=== PATIENT | male | born 1960 | race Caucasian/White ===

== ENCOUNTER 2021-12-28 00:16 | Day surgery (SDC) | payer OTHER, SELFPAY ==
[2021-12-15 15:17] VITALS: BMI 29.4
[2021-12-28 07:37] VITALS: BP 129/93; PULSE 78; RESP 20; TEMP 36.2; O2SAT 98
[2021-12-28] MEDS: LACTATED RINGERS 1,000 ML 150 ML IV CONT (07:52)
--- NOTE | 2021-12-28 08:06 | WPDANESEPPF ---
Anes - Initial Pre Proc Eval Procedure: Operation Date: 12/28/21 08:30 Proposed Procedures p Esophagogastroduodenoscopy & Screening Colonoscopy - Fredy Go MD Date/Time: 12/28/21 08:06 Surgeon: Fredy Go MD Pre Op Diagnosis: GERD, neoplasm screening, family hx colon ca Patient Data Age: 61 Gender: M Height: 1.78 m Weight: 92.3 kg Last Vital Signs Temp 36.2 C L 12/28/21 07:37 Pulse 78 12/28/21 07:37 Resp 20 12/28/21 07:37 BP 129/93 H 12/28/21 07:37 Pulse Ox 98 12/28/21 07:37 Allergies Allergy/AdvReac Type Severity Reaction Status Date / Time Penicillins Allergy Unknown Swelling Verified 12/28/21 07:36 of Lip/Tongue/Throat Home Medications Medication Instructions Recorded Confirmed Type etanercept [Enbrel SureClick] 50 mg SUBCUT WEEKLY 12/15/21 12/15/21 History folic acid 1 mg PO DAILY 12/15/21 12/15/21 History lisinopril-hydrochlorothiazide 1 tablet PO DAILY 12/15/21 12/15/21 History naproxen 500 mg PO DAILY 12/15/21 12/15/21 History omeprazole 20 mg PO DAILY 12/15/21 12/15/21 History sildenafil 50 mg PO DAILY PRN 12/15/21 12/15/21 History Patient hx anesthesia problems: none Family hx anesthesia problems: none Results Review: All pre-operative results and documents have been reviewed as part of the pre-operative evaluation. [facility] Past Medical History Medical History HTN (hypertension) Overweight Tobacco chew use Surgical History Surgical History (Updated 12/28/21 @ 08:08 by Leonardo Wong MD) History of cholecystectomy Social History Social History Smoking packs per day: 2 Smoking cigarettes per day: 40.0 Years smoked: 30 Smoking pack-years: 60.00 Smoking status: Former smoker Tobacco type: cigarettes Alcohol intake: never Substance use: never Substance use type: does not use Living arrangements: with family Spiritual care concerns: No Anes - Eval Final PreProcedure Day of Procedure 12/28/21 08:06 Patient weight: overweight Heart: regular rate and rhythm Lungs: clear to auscultation Airway: Mallampati scale class II Neurological: alert and oriented Last oral intake: >/= 8 hours ASA classification: III Emergent: no Anesthetic plan: proceed Anesthesia type and monitoring: general GIVS and standard monitoring Results Review: All pre-operative results and documents have been reviewed as part of the pre-operative evaluation. Informed Consent: The patient's anesthetic plan and its attendant risks and benefits were discussed with the patient/family/POA. Questions were solicited and answers provided to the satisfaction of the patient/family/POA.
--- NOTE | 2021-12-28 08:16 | PM.HPGS ---
History of Present Illness History of Present Illness Consent: Risks, benefits, and alternatives have been discussed and questions answered. Patient agrees to proceed with procedure. Chief complaint: GERD, neoplasm screening, family hx colon ca Narrative: Darrius Slater is a 61 year old male with gerd for ~ 30 years on omeprazole 1-2/week, never had EGD. Last colonoscopy ~ 7 years ago, father had colon cancer. Review of Systems Constitutional: Constitutional: Denies headache(s) and Denies weakness Eyes: Eyes: Denies blurry vision ENT: Reports Normal hearing present, Denies headache(s) and Denies neck pain Cardiovascular: Cardiovascular: Denies chest pain and Denies dyspnea Respiratory: Respiratory: Denies dyspnea Gastrointestinal: Gastrointestinal: Reports no additional gastrointestinal complaints Genitourinary: Genitourinary: Denies dysuria Musculoskeletal: Musculoskeletal: Denies neck pain Integumentary/Breasts: Skin/Breast: Denies dry skin Neurologic: Reports Normal hearing present, Denies headache(s) and Denies weakness Psychiatric: Psychiatric: Denies anxiety Endocrine: Endocrine: Denies change in body appearance Hematologic/Lymphatic: Hematologic/Lymphatic: Denies easy bleeding Allergic/Immunologic: Allergic/Immunologic: Denies urticaria PMFSH Past Medical History Medical History Colon cancer screening GERD (gastroesophageal reflux disease) HTN (hypertension) Overweight Tobacco chew use Surgical History Surgical History (Updated 12/28/21 @ 08:08 by Leonardo Wong MD) History of cholecystectomy Social History Social History Smoking packs per day: 2 Smoking cigarettes per day: 40.0 Years smoked: 30 Smoking pack-years: 60.00 Smoking status: Former smoker Tobacco type: cigarettes Alcohol intake: never Substance use: never Substance use type: does not use Living arrangements: with family Spiritual care concerns: No Meds Home Medications and Allergies Home Medications Medication Instructions Recorded Confirmed Type etanercept [Enbrel SureClick] 50 mg SUBCUT WEEKLY 12/15/21 12/15/21 History folic acid 1 mg PO DAILY 12/15/21 12/15/21 History lisinopril-hydrochlorothiazide 1 tablet PO DAILY 12/15/21 12/15/21 History naproxen 500 mg PO DAILY 12/15/21 12/15/21 History omeprazole 20 mg PO DAILY 12/15/21 12/15/21 History sildenafil 50 mg PO DAILY PRN 12/15/21 12/15/21 History Allergies Allergy/AdvReac Type Severity Reaction Status Date / Time Penicillins Allergy Unknown Swelling Verified 12/28/21 07:36 of Lip/Tongue/Throat Vital Signs Vital Signs - 24 hr 12/28/21 07:37 Temperature 97.1 F L Pulse Rate 78 Respiratory Rate 20 Blood Pressure 129/93 H Pulse Oximetry 98 Exam Const: General: comfortable and no acute distress HENMT: General nose exam: Normal nares present Eyes: General: appearance normal, both eyes and all related structures Neck: Neck: no JVD Resp: Auscultation: clear to auscultation bilaterally Cardio: Rate: regular rate Rhythm: regular rhythm GI: Inspection: non-distended GI Palp: Yes Soft to palpation Skin: General skin exam: normal color Neuro: General: gait normal Speech: normal speech Extrem: General: normal to inspection Psych: Mental Status: mental status grossly normal Assessment and Plan Assessment and plan (1) Colon cancer screening: Code(s): Z12.11 - Encounter for screening for malignant neoplasm of colon Status: Acute Assessment and Plan: colonoscopy (2) GERD (gastroesophageal reflux disease): Code(s): K21.9 - Gastro-esophageal reflux disease without esophagitis Status: Acute Assessment and Plan: egd with bx, taking ppi as needed
[2021-12-28] MEDS: ONDANSETRON INJ 4 MG/2 ML VIAL IV PUSH (08:17)
[2021-12-28] MEDS: FAMOTIDINE 20 MG/2 ML VIAL IV PUSH (08:18)
[2021-12-28 08:48] VITALS: BP 111/70; PULSE 110; RESP 18; O2SAT 97
[2021-12-28 08:58] VITALS: BP 117/77; PULSE 106; RESP 17; O2SAT 94
[2021-12-28 09:08] VITALS: BP 122/85; PULSE 60; RESP 19; O2SAT 96
--- NOTE | 2021-12-28 09:16 | SUR.OPER ---
EGD start 825 end 829, Colonoscopy start 834 end 843
== END 2021-12-28 09:29 | disposition home or self-care (01) ==
PROVIDERS: PCP Emergency Medicine; Visit Provider Internal Medicine Gastroenterology
PROC: 0DJ08ZZ Inspection of Upper Intestinal Tract, Via Natural or Artificial Opening Endoscopic (ICD-10-PCS; CPT 43235; principal; 2021-12-28 08:30)
DX: Z12.11 Encounter for screening for malignant neoplasm of colon (principal); D12.0 Benign neoplasm of cecum; Z80.0 Family history of malignant neoplasm of digestive organs; K57.30 Diverticulosis of large intestine without perforation or abscess without bleeding; K29.60 Other gastritis without bleeding; K21.00 Gastro-esophageal reflux disease with esophagitis, without bleeding; K22.10 Ulcer of esophagus without bleeding; I10 Essential (primary) hypertension; Z90.49 Acquired absence of other specified parts of digestive tract; Z87.891 Personal history of nicotine dependence
CPT/HCPCS: 45380; 43239; 88305; J2405; J2704; J7120

== ENCOUNTER 2025-05-22 12:53 | Emergency (ER) | payer OTHER, SELFPAY ==
--- NOTE | 2025-05-22 12:56 | ED.GENADULT ---
HPI - General Adult General Chief complaint: Anxiety Stated complaint: ANXIETY Source: patient Mode of arrival: ambulatory Limitations: no limitations History of Present Illness HPI narrative: Pt is a pleasant 61 yo male presenting with c/o anxiety. Reports anxiety has been present x several weeks--became worse over the last week. States he went to PCP last week due to anxiety and sinus congestion--said PCP only addressed his sinus congestion with abx and prednisone. States he has been taking those medications without improvement in sx--citing worsening of anxiety since starting those meds. States he feels like the room is closing in when going from outdoors to inside. Denies SI/HI. Denies CP, SOB, abd pain, NVD, headache, vision abnormalities. States his PCP d/c his abx yesterday as the patient voiced concern over the abx causing his anxiety. Does report upcoming labwork due to high platelets. No alleviating factors. No additional complaints. Related Data Home Medications ?Medication ?Instructions ?Recorded ?Confirmed ?Last Taken ?Type etanercept 50 mg/mL (1 mL) 50 mg subcut WEEKLY 12/15/21 12/15/21 Unknown History subcutaneous pen injector (Enbrel SureClick) folic acid 1 mg tablet 1 mg PO DAILY 12/15/21 12/15/21 12/27/21 History lisinopril 10 1 tablet PO DAILY 12/15/21 12/15/21 12/27/21 History mg-hydrochlorothiazide 12.5 mg tablet naproxen 500 mg tablet 500 mg PO DAILY 12/15/21 12/15/21 12/27/21 History sildenafil 50 mg tablet 50 mg PO DAILY PRN Sexual Activity 12/15/21 12/15/21 Unknown History Allergies Allergy/AdvReac Type Severity Reaction Status Date / Time Penicillins Allergy Unknown Swelling Verified 12/28/21 07:36 of Lip/Tongue/Throat Review of Systems Review of Systems: CONSTITUTIONAL: Denies body aches, fever, chills, or sweats. EYES: Denies visual changes, redness, or discharge. ENT: Reports nasal congestion. Denies rhinorrhea, sore throat, or otalgia. CARDIOVASCULAR: Denies chest pain, palpitations, or edema. RESPIRATORY: Denies cough or dyspnea. GASTROINTESTINAL: Denies abdominal pain, nausea, vomiting, or diarrhea. GENITOURINARY: Denies dysuria or hematuria. SKIN: Denies rash, itching, or wounds. MUSCULOSKELETAL: Denies back pain, joint pain, or myalgia. NEUROLOGIC: Denies headache, numbness, tingling, or weakness. PSYCH: Reports anxiety, denies depression All systems reviewed & are unremarkable except as noted in HPI and below (HPI) [facility] Past Medical History Medical History (Updated 05/22/25 @ 14:05 by Sridhar Berman APRN) GERD (gastroesophageal reflux disease) Colon cancer screening Tobacco chew use Overweight HTN (hypertension) Surgical History Surgical History (Updated 12/28/21 @ 08:08 by Leonardo Wong MD) History of cholecystectomy Social History Social History Smoking packs per day: 2 Smoking cigarettes per day: 40.0 Years smoked: 30 Smoking pack-years: 60.00 Smoking status: Former smoker Tobacco type: cigarettes Alcohol intake: never Substance use: never Substance use type: does not use Living arrangements: with family Spiritual care concerns: No Exam Narrative: GENERAL: Well-appearing, well-nourished, and in no acute distress. HEAD: Normocephalic, atraumatic. EYES: EOMI. No redness or drainage. Conjunctivae normal. ENT: Mucous membranes pink and moist. Nares clear. No rhinorrhea. TMs normal bilaterally. Throat normal. Uvula midline. Sinuses are nonTTP NECK: Normal AROM. Supple. No lymphadenopathy. CHEST: No respiratory distress. Clear to auscultation. HEART: Regular rate and rhythm. No murmur appreciated. Normal peripheral pulses. MUSCULOSKELETAL: No bony tenderness. EXTREMITIES: Normal range of motion. No edema. SKIN: Warm, dry, no rash. Capillary refill normal. Normal skin turgor. NEURO: No focal deficits. Alert and oriented x3. Gait steady. PSYCH: Normal affect. No signs of depression or anxiety. Course Course Emergency Course: encouraged him to f/u with PCP for further diagnostic work up. Strict go to the ER precautions discussed at length with patient. Discussed elevated blood pressure readings with patient and advised daily BP monitoring and f/u with PCP if persisting. Level of Care: Express Care Visit Vital Signs Vital signs: Vital Signs Temperature 97.2 F L 05/22/25 13:01 Pulse Rate 73 05/22/25 13:01 Respiratory Rate 16 09/17/25 13:01 Blood Pressure 143/87 H 05/22/25 13:01 Pulse Oximetry 97 05/22/25 13:01 Temperature 97.2 F L 05/22/25 13:01 Pulse Rate 73 05/22/25 13:01 Respiratory Rate 16 05/22/25 13:01 Blood Pressure 143/87 H 05/22/25 13:01 Pulse Oximetry 97 05/22/25 13:01 Medical Decision Making Vital Signs Vital Signs: Vital Signs Temperature 97.2 F L 05/22/25 13:01 Pulse Rate 73 05/22/25 13:01 Respiratory Rate 16 05/22/25 13:01 Blood Pressure 143/87 H 05/22/25 13:01 Pulse Oximetry 97 05/22/25 13:01 Temperature 97.2 F L 05/22/25 13:01 Pulse Rate 73 05/22/25 13:01 Respiratory Rate 16 05/22/25 13:01 Blood Pressure 143/87 H 05/22/25 13:01 Pulse Oximetry 97 05/22/25 13:01 Discharge Plan Discharge Clinical Impression: Nasal congestion, Anxiety, Elevated blood pressure reading in office without diagnosis of hypertension Patient Disposition: Home Condition: Stable Instructions: Anxiety (ED) Additional Instructions: Go straight to ER should your symptoms become worse or should any new symptoms develop Patient Language: Lao Prescriptions: New fluticasone propionate 50 mcg/actuation spray,suspension 1 spray intranasal BID Qty: 16 0RF Rx Instructions: administer into each nostril cetirizine [Zyrtec] 10 mg tablet 10 mg PO DAILY Qty: 30 0RF hydroxyzine HCl 25 mg tablet 25 mg PO TID Qty: 20 0RF Rx Instructions: as needed for anxiety No Action sildenafil 50 mg tablet 50 mg PO DAILY PRN (Reason: Sexual Activity) folic acid 1 mg tablet 1 mg PO DAILY lisinopril-hydrochlorothiazide 10-12.5 mg tablet 1 tablet PO DAILY naproxen 500 mg tablet 500 mg PO DAILY Enbrel SureClick 50 mg/mL (1 mL) pen injector 50 mg SUBCUT WEEKLY omeprazole 20 mg capsule,delayed release(DR/EC) 20 mg PO DAILY Qty: 30 11RF Follow-up/Referrals: Kvng Marquez MD [Primary Care Provider, Family Practice] - 05/23/25 Time of Disposition: 13:26
[2025-05-22 13:01] VITALS: BP 143/87; PULSE 73; RESP 16; TEMP 36.2; O2SAT 97
== END 2025-05-22 13:31 | disposition home or self-care (01) ==
PROVIDERS: Emergency Provider Registered Nurse; PCP Emergency Medicine
DX: R09.81 Nasal congestion (principal); F41.9 Anxiety disorder, unspecified; R03.0 Elevated blood-pressure reading, without diagnosis of hypertension; K21.9 Gastro-esophageal reflux disease without esophagitis; Z87.891 Personal history of nicotine dependence
CPT/HCPCS: 99213; G0463

== ENCOUNTER 2025-06-04 19:09 | Emergency (ER) | payer OTHER, SELFPAY ==
--- NOTE | 2025-06-04 19:19 | ED.LOWEXIN ---
HPI - Extremity Injury (Lower) General Chief Complaint: Extremity Injury, Lower Stated Complaint: R knee pain Time Seen by Provider: 06/04/25 19:25 Source: patient and RN notes reviewed Mode of arrival: ambulatory Limitations: no limitations History of Present Illness HPI Narrative: 65-year-old male presents with concern for right knee pain. Reports posterior pain. Reports he felt a pop he made a certain movement tonight and has had posterior pain. He no pain at rest and worsening pain with extension of the knee. He has been walking with a cane to assist with the pain. MD complaint: knee injury Related Data Home Medications ?Medication ?Instructions ?Recorded ?Confirmed ?Last Taken ?Type etanercept 50 mg/mL (1 mL) 50 mg subcut WEEKLY 12/15/21 12/15/21 Unknown History subcutaneous pen injector (Enbrel SureClick) folic acid 1 mg tablet 1 mg PO DAILY 12/15/21 12/15/21 12/27/21 History lisinopril 10 1 tablet PO DAILY 12/15/21 12/15/21 12/27/21 History mg-hydrochlorothiazide 12.5 mg tablet naproxen 500 mg tablet 500 mg PO DAILY 12/15/21 12/15/21 12/27/21 History sildenafil 50 mg tablet 50 mg PO DAILY PRN Sexual Activity 12/15/21 12/15/21 Unknown History escitalopram oxalate 10 mg tablet mg 06/04/25 Unknown History Allergies Allergy/AdvReac Type Severity Reaction Status Date / Time Penicillins Allergy Unknown Swelling Verified 06/04/25 19:13 of Lip/Tongue/Throat Review of Systems Review of Systems: CONSTITUTIONAL: Denies malaise, chills, sweats, or fever. SKIN: Denies rash or itching, open skin, laceration, abrasion, redness, warmth, swelling. MUSCULOSKELETAL: Reports right knee pain NEUROLOGIC: Denies numbness, weakness All systems reviewed & are unremarkable except as noted in HPI and below PMFSH Past Medical History Medical History (Updated 06/04/25 @ 19:35 by Selene Viera NP) GERD (gastroesophageal reflux disease) Colon cancer screening Tobacco chew use Overweight HTN (hypertension) Surgical History Surgical History (Updated 12/28/21 @ 08:08 by Leonardo Wong MD) History of cholecystectomy Social History Social History Smoking packs per day: 2 Smoking cigarettes per day: 40.0 Years smoked: 30 Smoking pack-years: 60.00 Smoking status: Former smoker Tobacco type: cigarettes Alcohol intake: never Substance use: never Substance use type: does not use Living arrangements: with family Spiritual care concerns: No Comments At time of signature, agree with nursing past medical, surgical, social and family history. There is no relevant family history pertinent to the presenting complaint Exam Narrative: GENERAL: Well-appearing, well-nourished, and in no acute distress. HEAD: Normocephalic, atraumatic. EYES: PERRLA, conjunctivae clear NECK: Supple. CHEST: Speaks in full sentences. No respiratory distress. HEART: Regular rate and rhythm. Normal and equal peripheral pulses. EXTREMITIES: Right knee has grossly normal strength and sensation, grossly normal range of motion. No edema or ecchymosis. Normal sensation with sensitivity to light touch and pain. No point tenderness. No open wounds, no skin tenting, no devitalized tissue or atrophy, no trophic changes, no obvious deformity, alignment normal, nearby joints and structures intact. Distal pulses palpable and equal bilaterally, skin warm, dry, pink. Capillary refill less than 3 seconds. SKIN: Warm, dry, no rash. NEURO: Alert and oriented x3. PSYCH: Normal mood and affect Course Course Emergency Course: Patient is aware of diagnosis, understands and agrees to treatment plan. Anticipatory guidance given. Patient agrees to follow-up as directed and is aware of reasons to seek care at the emergency department. Portions of this record may have been created with voice recognition software Level of Care: Express Care Visit Vital Signs Vital signs: Reviewed. MDM - Extremity Injury (Lower) MDM Narrative Medical decision making narrative: The patient was evaluated by myself in the express care. History is obtained from patient who is an independent historian and physical exam was performed.? Available medical records were reviewed at this time. ? Exam findings show no acute concerns or changes; patient is non-toxic appearing and is in no distress. Patient is appropriate for outpatient treatment and follow-up. ? I have evaluated and discussed social determinants of health with the patient that could potentially impact subsequent diagnosis and treatment plans. ? Patients injury and pain is consistent with musculoskeletal etiology. No signs of neurological or vascular compromise on exam. Compartments and tissues are soft without signs of compartment syndrome. Pain is felt appropriate for further evaluation on an outpatient basis. Critical Care Time Critical Care Time Critical Care Time: No Discharge Plan Discharge Clinical Impression: Acute knee pain Patient Disposition: Home Condition: Stable Instructions: Knee Pain (ED) Additional Instructions: Avoid activities that cause pain until the pain subsides. Ice to the area 20-30 minutes 4-6 times a day Elevate above heart Elastic wrap as directed for comfort for the next 5-7 days Tylenol for pain Naproxen as needed for inflammation Follow up with your primary care provider if the condition is not improving within 1 week. If the condition worsens with numbness, tingling, decrease sensation with weakness seek treatment in the emergency room immediately. Patient Language: Northern Irish Prescriptions: No Action escitalopram oxalate 10 mg tablet fluticasone propionate 50 mcg/actuation spray,suspension 1 spray intranasal BID Qty: 16 0RF Rx Instructions: administer into each nostril cetirizine [Zyrtec] 10 mg tablet 10 mg PO DAILY Qty: 30 0RF hydroxyzine HCl 25 mg tablet 25 mg PO TID Qty: 20 0RF Rx Instructions: as needed for anxiety sildenafil 50 mg tablet 50 mg PO DAILY PRN (Reason: Sexual Activity) folic acid 1 mg tablet 1 mg PO DAILY lisinopril-hydrochlorothiazide 10-12.5 mg tablet 1 tablet PO DAILY naproxen 500 mg tablet 500 mg PO DAILY Enbrel SureClick 50 mg/mL (1 mL) pen injector 50 mg SUBCUT WEEKLY omeprazole 20 mg capsule,delayed release(DR/EC) 20 mg PO DAILY Qty: 30 11RF Follow-up/Referrals: Kvng Marquez MD [Primary Care Provider, Family Practice] Gentry Leslie MD [Physician, Orthopedics] Stand Alone Forms: Work/School Release IP Time of Disposition: 19:34
[2025-06-04 19:22] VITALS: BP 121/74; PULSE 75; RESP 16; TEMP 34.8; O2SAT 97
== END 2025-06-04 19:36 | disposition home or self-care (01) ==
PROVIDERS: Emergency Provider Nurse Practitioner; PCP Emergency Medicine
DX: M25.561 Pain in right knee (principal); I10 Essential (primary) hypertension; K21.9 Gastro-esophageal reflux disease without esophagitis; Z87.891 Personal history of nicotine dependence
CPT/HCPCS: 99212; G0463

== ENCOUNTER 2025-08-22 10:28 | Outpatient (CLI) | payer OTHER, SELFPAY ==
--- NOTE | 2025-08-22 10:54 | ECG_ITS ---
Test Date: 2025-08-22 11:02:27 Measurements Intervals [place] Rate: 62 P: 60 ME: 157 QRS: 14 QRSD: 97 T: 30 QT: 387 QTc: 394 Interpretive Statements SINUS RHYTHM BASELINE ARTIFACT- I, III, AVR, AVL, AVF NORMAL ECG No previous ECG available for comparison Electronically Signed On 08-22-2025 13:30:35 [employer]PER[employer] by Andreas Linton D.O.
--- OUTSIDE RECORDS SUMMARY | 2025-08-22 11:11 | XMS_ITS | Encounter Summary ---
Author Organization [facility] Address [address] [place] [address] Phone Care Team Providers Care Molder Setter Name Role Phone Kvng Marquez MD Primary Care Provider [phone] Encounter Details Date Type Department Care Team (Late st Contact Info) Description 10/11/2017 Orders Only [facility] ProviderJordan MD [address] [place] [id number] Social History Tobacco Use Types Packs/Day Years Used Date Smoking Tobacco: Former Smokeless Tobacco: Current Alcohol Use Standard Drinks/Week Comments No 0 (1 standard drink = 0.6 oz pur e alcohol) Sex and Gender Information Value Date Recorded Sex Assigned at Not on file Legal Sex Male 11:14 AM MARRIAGE AND FAMILY THERAPIST Gender Identity Not on file Sexual Orientation Not on file documented as of this encounter Plan of Treatment Not on file documented as of this encounter Procedures Procedure Name Priority Date/Time Associated Diagnosis Comments DISCHARGE LABORATORY CUMULATIVE REPORT 10/11/2017 12:00 AM MARRIAGE AND FAMILY THERAPIST documented in this encounter Results * DISCHARGE LABORATORY CUMULATIVE REPORT (10/11/2017 12:00 AM MARRIAGE AND FAMILY THERAPIST) Narrative 10/11/2017 12:00 AM MARRIAGE AND FAMILY THERAPIST Ordered by an unspecified provider. Historical Provider LAB BLOOD ORDERABLES Isela l Result documented in this encounter Visit Diagnoses Not on filedocumented in this encounter Care Teams Molder Setter Relationship Specialty Start Date End Date Kvng Marquez MD PCP - General 01/14/17 documented as of this encounter
--- OUTSIDE RECORDS SUMMARY | 2025-08-22 11:11 | XMS_ITS | Clinical Summary ---
Author Organization [facility] Address [address] [place] [address] Phone Care Team Providers Care Water Rights Specialist Name Role Phone Kvng Marquez Primary Care Provider [phone] Avelino Felix APRN, CORPORATE DIRECTOR Unavailable [phone] Mike Hsu MD Unavailable Allergies Active Allergy Reactions Criticality Noted Date Comments Penicillins Other (see Comments) 11/30/2021 Reaction: Unknown, Medications naproxen (NAPROSYN) 500 MG Tablet 09/10/2021 Active omeprazole (PriLOSEC) 20 MG CAPSULE DELAYED RELEASE 11/19/2021 Act bruno sildenafil citrate (VIAGRA) 50 MG Tablet TAKE 1 TABLET BY MOUTH ONCE DAILY NEEDED DIRECTED ONE HOUR BEFORE ACTIVITY. MAX OF 1/24 HOURS. 10/22/2021 Active lisinopril-hydr oCHLOROthiazide (PRINZIDE, ZESTORETIC) 10-12.5 MG Tablet Take 1 Tablet by mouth daily. 11/13/2021 Active Multiple Vitamin (MULTI-VITAMIN PO) take 1 tablet by oral route every day with food 02/09/2013 Active fluticasone (FLONASE) 50 MCG/ACT Suspension shake liquid and use 1 spray in each nostril twice daily 05/22/2025 Active hydrOXYzine (ATARAX) 25 MG Tablet Take 25 mg by mouth 3 times daily as needed for Anxiety. 05/22/2025 Active Active Problems No known active problems Encounters Date Type Department Care Team Description 06/11/2025 Results Follow-Up [facility] [address] [place] [phone] Avelino Felix APRN, SUDEEP PSA DIAGNOSTIC,TOTAL 06/06/2025 10:45 AM CDT Office Visit [facility] [address] [phone] Jackie Washington APRN, CNP Thrombocytopenia (Primary Dx); Leukocytosis, unspecified type; History of elevated PSA 06/06/2025 Travel 05/30/2025 1:30 PM CDT Office Visit [facility] [address] [address] Mike Hsu MD Thrombocytopenia (HCC) (Primary Dx) 05/30/2025 1:25 PM CDT Lab [facility] [address] [address] Lab, [facility] Thrombocytopenia (HCC); Rising PSA level 05/30/2025 Travel from Last 3 Months Immunizations Immunization Administration Dates Next Due Influenza Seasonal, Intrader mal, Preservative Free 09/22/2015,09/05/2014,08/03/2012 Influenza Vaccine 07/15/2017,08/15/2013 Influenza Vaccine, MDCK,quad rivalent, pres free 07/10/2017 Influenza Vaccine, Quadrivalent, PF 05/07,05/29/2021,06/09/2020,2018,06/15/2018 Influenza, Injectable, Quadrivalent 05/04/2019 Influenza, Seasonal, Injecta ble, Undefined 05/26/2010 Pneumococcal Vaccine Adult - 23 Valent 08/03/2012 TDAP Vaccine 04/11/2012 Family History Medical History Relation Name Comments Cancer Father Cancer Mother Relation Name Status Comments Brother Alive Father Mother Social History Tobacco Use Types Packs/Day Years Used Date Smoking Tobacco: Former Cigarettes Smokeless Tobacco: Former Chew Tobacco Cessation:Counseling Given: Not Answered Comments:quit 12 yrs ago Alcohol Use Standard Drinks/Week Comments Not Currently 0 (1 standard drink = 0.6 oz pur e alcohol) Sexually Active Control Partners Comments Not Currently Sex and Gender Information Value Date Recorded Sex Assigned at Not on file Legal Sex 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 Gender Identity Not on file Sexual Orientation Not on file Last Filed Vital Signs Vital Sign Reading Time Taken Comments Blood Pressure 136/82 06/06/2025 10:39 AM CDT Pulse 71 06/06/2025 10:39 AM CDT Temperature 36.7 C (98 F) 06/06/2025 10:39 AM CDT Respiratory Rate 18 06/06/2025 10:39 AM CDT Oxygen Saturation 97% 06/06/2025 10:39 AM CDT Inhaled Oxygen Concentration - - Weight 93.7 kg (206 lb 8 oz) 06/06/2025 10:39 AM CDT Height 177.8 cm (5' 10) 06/06/2025 10:39 AM CDT Body Mass Index 29.63 06/06/2025 10:39 AM CDT Plan of Treatment Upcoming Encounters Date Type Department Care Team (Late st Contact Info) Description 10/10/2025 10:30 AM BANKING ATTORNEY Lab [facility] [address] [address] Lab, [facility] 10/10/2025 10:45 AM BANKING ATTORNEY Office Visit [facility] [address] [address] Mike Hsu MD [address] [place] [phone] 12/10/2025 11:00 AM CDT Office Visit [facility] [address] [place] [address] Avelino Felix, SOCIAL WORK SUPERVISOR, CORPORATE DIRECTOR [address] [place] [address] Health Maintenance Due Date Last Done Comments Hepatitis C Virus (HCV) Screening 1961 Cologuard 2006 Colonoscopy 2006 Colorectal Cancer Screening 2006 Immunochemical Fecal Occult Blood 2006 Zoster Immunization (1 of 2) 2011 Pneumococcal Immunization (50+ years) (2 of 2 - PCV) 08/03/2013 08/03/2012 Td Immunization Every 10 Years (Adults With 1 Tdap) 04/11/2022 04/11/2012 Influenza Immunization (#1) 05/06/202505/07, 05/29/2021, 06/09/2020, Additional history exists SARS-COV-2 Immunization (2024- season) 2025 10/09/2021, 11/15/2020, 10/18/2020 Respiratory Syncytial Virus (RSV) Immunization (Adult) (1 - 1-dose 75+ series) 2036 DTaP/Tdap/Td Immunization Discontinued 04/11/2012 Pneumococcal Immunization Combined Discontinued 08/03/2012 PSA Discussion Completed 05/30/2025, 11/03, 05/08/2024, Additional history exists Hepatitis B Immunization Aged Out No longer eligible based on patient's age to complete this topic Human Papillomavirus (HPV) Immunization (No Doses Required) Completed Meningococcal Immunization (ACWY) Aged Out No longer eligible based on patient's age to complete this topic Rotavirus Immunization Aged Out No lo nger eligible based on patient's age to complete this topic Procedures Procedure Name Priority Date/Time Associated Diagnosis Comments PSA DIAGNOSTIC,TOTAL Routine 05/30/2025 1:22 PM CDT Rising PSA level COMPLETE BLOOD COUNT (CBC) WITH DIFF Routine 05/30/2025 1:22 PM CDT Thrombocytopenia (HCC) from Last 3 Months Results * PSA DIAGNOSTIC,TOTAL (05/30/2025 1:22 PM CDT) PSA 4.00 0.00 - 4.00 ng/mL [facility] Comment: Marsha Paramagnetic Particle Chemiluminescent Immunoassay Method. Standardized against the WHO standard. Blood 05/30/2025 1:22 PM CDT Narrative [facility] - 05/31/2025 3:42 PM CDT Release to patient->Immediate us Avelino Felix SOCIAL WORK SUPERVISOR, CORPORATE DIRECTOR CHEMISTRY ORDERABLES F inal Result [facility] [place] [address], * (ABNORMAL) COMPLETE BLOOD COUNT (CBC) WITH DIFF (05/30/2025 1:22 PM CDT) WBC 14.4(H) 4.0 - 10.0 10*3/uL [facility] HGB 15.6 13.7 - 17.5 g/dL [facility] HCT 46.6 40.1 - 51.0 % [facility] PLT 186 163 - 369 10*3/uL [facility] MPV 10.5 9.4 - 12.4 fL [facility] RBC 5.64 4.63 - 6.08 10*6/uL [facility] MCV 83 79 - 95 fL [facility] MCH 27.7 25.6 - 32.2 pg [facility] MCHC 33.5 32.2 - 36.5 g/dL [facility] RDW 13.8 11.6 - 14.4 % [facility] Absolute Neutrophil Count 10,045 cells/uL [facility] Absolute Seg Count 10,045(H) 1,440 - 6,600 cells/uL [facility] Absolute Lymph Count 2,870 760 - 4,000 cells/uL [facility] Absolute Stark Count 1,005 160 - 1,200 cells/uL [facility] Absolute Eos Count 431(H) 0 - 300 cells/uL [facility] Segmented Neutrophils 70(H) 36 - 66 % [facility] Lymphocytes 20 19 - 40 % [facility] Monocytes 7 4 - 12 % [facility] Eosinophils 3 0 - 3 % [facility] WBC Estimate High [facility] Platelet Estimate Normal [facility] RBC Morphology Normal [facility] Large Platelets Present [facility] Blood 05/30/2025 1:22 PM CDT Narrative [facility] - 05/30/2025 2:24 PM CDT Release to patient->Immediate us Mike Hsu MD HEMATOLOGY ORDERABLES Final Resu lt [facility] [place] [address], [place] [phone] from Last 3 Months Insurance Advance Directives Documents on File Type Date Recorded Patient Tug Hand Expl anation Other Advance Directive 12/03/2021 11:07 AM AUA URINE SCORE Care Teams Water Rights Specialist Relationship Specialty Start Date End Date Kvng Marquez [address] [place] [address] PCP - General Family Medicine 11/10/21 Avelino Felix APRN, CORPORATE DIRECTOR [address] [place] [address] Nurse Practitioner Advanced Practice Nurse 03/22/23 Mike Hsu MD [address] [place] [id number] Consulting Physician Oncology 06/06/25
--- OUTSIDE RECORDS SUMMARY | 2025-08-22 11:11 | XMS_ITS | Clinical Summary ---
Author Organization [facility] Address [address] [place] [address] Care Team Providers Care Engine Room Operator Name Role Phone Kvng Marquez MD Primary Care Provider Allergies Active Allergy Reactions Criticality Noted Date Comments Penicillins Other (See comments) Reaction: Unknown, Medications multivitamin (MULTIPLE VITAMINS DAILY) tablet tablet take 1 tablet by oral route every day with food 0 3 Active b complex vitamins (VITAMINS B COMPLEX) capsule Take 1 capsule by mouth daily. 30 capsule 2 8 Active omeprazole (PriLOSEC) 20 mg capsule TAKE 1 CAPSULE DAILY BEFORE A MEAL 90 capsule 9 Active lisinopril-hydr oCHLOROthiazide (PRINZIDE,ZESTO RETIC) 10-12.5 mg per tablet TK 1 T PO QD 1 9 Active sildenafiL (VIAGRA) 50 mg tablet Take 1 tablet (50 mg total) by mouth daily 2 Active naproxen (NAPROSYN) 500 mg tablet Take 0.5 tablets (250 mg total) by mouth 2 (two) times a day with meals 90 tablet 3 3 Active EnbreL SureClick 50 mg/mL (1 mL) pen injector INJECT 50 MG (1 ML) UNDER THE SKIN EVERY WEEK 4 mL 2 4 Active Additional Information Patient not taking.Reported on 03/12/2025 Active Problems Problem Noted Date Diagnosed Date skilled nursing (current) use of n on-steroidal anti-inflammatories (nsaid) 07/11/2023 Assessment & Plan (07/11/2023 11:41 AM SUPERVISOR SPEECH): Takes naproxen once a day most days of the week. Please remember that NSAID-type medications have two very important potential side effects: gastrointestinal irritation including hemorrhage and renal injuries. Make sure to take the medication with food and to stop if you experiences any GI upset. Please call our office or your PCP should you develop vomiting, abdominal pain or black/bloody stools. Make sure to take NSAID-type medications with food and stay well-hydrated to reduce the risk of GI or kidney issues. Take care when using ehyh-bno-wvyouse medications as some also contain NSAIDs. The most common uqab-pdp-ofqaccs NSAIDs include naproxen and ibuprofen. Make sure that you do not take more than one NSAID-type medications at the same time unless specifically directed to by a medical professional. Osteoarthritis of multiple joints 07/11/2023 Assessment & Plan (07/11/2023 11:47 AM SUPERVISOR SPEECH): You can use topical diclofenac gel massaged in to hands and knees three times a day for relief of arthritic joint pain. Voltaren gel is a common brand name but there are certainly other store- brand/generic options. Just make sure that the active ingredient is diclofenac For optimal benefit, avoid washing hands for about 30 minutes after application. Also remember that this topical gel contains a non-steroidal pain reliever and should be kept away from children and pets. Long-term use of high-risk medication 11/19/2019 Assessment & Plan (07/11/2023 11:04 AM SUPERVISOR SPEECH): Long-term use of high-risk medication requiring regular monitoring. Labs ordered, no s/s of med tox or infection. Encouraged to work with PCP to make sure all recommended cancer screens and vaccinations are complete. Avoid live-vaccines unless reviewed with field servicer first. Assessment & Plan (11/19/2019 10:53 PM CDT): Patient on immunosuppressive medications requiring periodic lab monitoring for drug safety. Rheumatoid arthritis involvi ng multiple sites with positive rheumatoid factor 01/05/2016 Overview (12/09/2016): RA (rheumatoid arthritis) Assessment & Plan (07/11/2023 11:41 AM SUPERVISOR SPEECH): Stable on Enbrel, continue same. Labs due today. Follow up in 4-6 months and prn. Assessment & Plan (11/19/2019 10:53 PM CDT): Rheumatoid arthritis follow up with continued improvement on Enbrel. No side effects reported. Continue present regimen Abnormal blood chemistry level 09/02/2014 Chronic liver disease 09/02/2014 Drug indicated 11/19/2013 Overview (12/09/2016): Encounter for long-term (current) use of other hig Back pain 05/14/2013 Overview (12/10/2016): Back pain Gastroesophageal reflux disease 10/05/2012 Overview (12/09/2016): GERD (gastroesophageal reflux disease) Essential hypertension 10/05/2012 Encounters Date Type Department Care Team Description 07/11/2025 1:49 PM SUPERVISOR SPEECH - 07/11/2025 11:59 PM SUPERVISOR SPEECH Hospital Encounter [address] [address] Unspecified injury of right lower leg, initial encounter Discharge Disposition: Discharge to home or self care 06/03/2025 Telephone [facility] at [facility] [address] [facility] [address] [place] [phone] Charmaine Carrero MD Infusion; Medication Problem 05/31/2025 10:08 AM CDT - 05/31/2025 11:59 PM CDT Hospital Encounter [address] [address] Chronic sinusitis, unspecified location Discharge Disposition: Discharge to home or self care 05/30/[address] [phone] Charmaine Carrero MD from Last 3 Months Immunizations Immunization Administration Dates Next Due Flucelvax Influenza Quad 07/10/2017 Influenza, Quadrivalent, Spl it, Intramuscular 05/04/2019 Influenza, Quadrivalent, Spl it, Preservative Free, Intramuscular 06/01/2022,05/29/2021,06/09/2020,05/04,06/16/2018,06/15/2018 Influenza, Split 08/15/2013 Influenza, Trivalent, IM (MDV) 05/26/2010 Influenza, Trivalent, Preser vative Free, Intramuscular 07/15/2017,08/15/2013 Influenza, Trivalent, Split, Preservative Free, Intradermal 09/22/2015,09/05/2014,08/03/2012 Influenza, Unspecified 05/26/2010 Pneumococcal Polysaccharide PPV23 08/03/2012 Tdap 04/11/2012 Surgical History Surgery Date Site/Laterality Comments CHOLECYSTECTOMY 2006 Cholecystectomy Medical History Medical History Date Comments Gastric reflux Hypertension Rheumatoid arthritis (HCC) Rheumatoid arthritis involvi ng multiple sites with positive rheumatoid factor (HCC) 01/05/2016 RA (rheumatoid a rthritis) Family History Medical History Relation Name Comments Other Father 2 No history of D iabetes mellitus; Prostate cancer Father 2 Cancer -pros burks; Cause of : Cancer -prostate Lung cancer Mother 2 Cancer -lung; C ause of : Cancer -lung Relation Name Status Comments Father 1 (Age 68) Father 2 Mother 1 (Age 85) Mother 2 Social History Tobacco Use Types Packs/Day Years Used Date Smoking Tobacco: Former Smokeless Tobacco: Current Tobacco Cessation:Ready to Q uit: Not Asked; Counseling Given: Not Answered Alcohol Use Standard Drinks/Week Comments No 0 (1 standard drink = 0.6 oz pur e alcohol) AUDIT-C Answer Date Recorded Q1: How often do you have a drink containing alcohol? Never 03/12/2025 Q2: How many drinks containi ng alcohol do you have on a typical day when you are drinking? Patient does not drink Q3: How often do you have si x or more drinks on one occasion? 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 Not on file Not on file Not on file Last Filed Vital Signs Vital Sign Reading Time Taken Comments Blood Pressure 137/85 04/08/2025 3:55 PM CDT Pulse 58 04/08/2025 3:55 PM CDT Temperature 36.2 C (97.1 F) 04/08/2025 3:55 PM CDT Respiratory Rate 20 04/08/2025 3:55 PM CDT Oxygen Saturation 98% 04/08/2025 3:55 PM CDT Inhaled Oxygen Concentration - - Weight 96.5 kg (212 lb 11.2 oz) 04/08/2025 1:28 PM CDT Height 177.8 cm (5' 10) 03/12/2025 7:48 AM CDT Body Mass Index 30.52 03/12/2025 7:48 AM CDT Plan of Treatment Health Maintenance Due Date Last Done Comments Colon Cancer Screening-Colonoscopy 1961 Prostate Cancer Screening-PSA 1961 Hepatitis B Screening 1979 Regular Well Visit/Exam 18-64 1979 Zoster Vaccine (1 of 2) 2011 Pneumococcal vaccine <65 (2 of 2 - PCV) 08/03/2013 08/03/2012 DTaP/Tdap/Td Vaccine (2 - Td or Tdap) 04/11/2022 04/11/2012 Depression Screening 11/27/2022 11/27/2021, 04/30/2019, 10/30/2018 Influenza Vaccine (#1) 2025 2, 05/29/2021, 06/09/2020, Additional history exists Hepatitis C Screening Completed 03/12/2025 Procedures Procedure Name Priority Date/Time Associated Diagnosis Comments MRI KNEE RIGHT WO CONTRAST Schedule Routine, Read Routine (OP Routine) 07/11/2025 2:51 PM SUPERVISOR SPEECH Unspecified injury of right lower leg, initial encounter CT SINUS WO CONTRAST Schedule Routine, Read Routine (OP Routine) 05/31/2025 10:33 AM CDT Chronic sinusitis, unspecified location HEPATITIS PANEL, ACUTE Routine 03/12/2025 8:30 AM CDT Long-term use of high-risk medication from Last 3 Months or Most Recently Relevant to Health Maintenance Results * MRI Knee Right WO Contrast (07/11/2025 2:51 PM SUPERVISOR SPEECH) Anatomical Region Laterality Modality Lower Extremities Right Magnetic Reson ance 07/11/2025 7:58 PM SUPERVISOR SPEECH Impressions 07/11/2025 7:58 PM SUPERVISOR SPEECH 1. Complex tear of the right medial meniscus posterior horn root junction with incomplete radial component and extrusion of the body into the medial gutter. 2. Degenerative innermargin fraying of the right lateral meniscal body. 3. Small subchondral insufficiency fracture of the peripheral anterior medial tibial plateau. Mild tricompartmental right knee chondrosis. 4. Moderate size knee effusion. Electronically signed by: Niall Kim M.D. Narrative 07/11/2025 7:58 PM SUPERVISOR SPEECH EXAMINATION: 1. MRI right knee without contrast HISTORY: Right knee pain since twisting injury. FINDINGS: Comparison not available. Multiplanar multisequence MR examination of the right knee was performed. In the medial compartment, there is a complex tear of the posterior horn root junction with incomplete radial component and extrusion of the body into the medial gutter. Partial thickness cartilage loss is present. Focal marrow edema involving the peripheral anterior medial tibial plateau with small subchondral insufficiency fracture. In the lateral compartment, there is degenerative innermargin fraying of the meniscal body. Deep partial thickness cartilage loss of the central weightbearing femoral condyle. In the patellofemoral compartment, there is partial thickness cartilage loss the median ridge and medial patellar facet. Fissuring is present. The cruciate and collateral ligaments are intact. Deep medial collateral ligament bursitis. Enthesophyte formation at the distal quadriceps and patellar tendon insertions are noted. The popliteus tendon is normal. Moderate size knee effusion is present with mild synovitis. No loose bodies are identified. Anterior knee subcutaneous edema. Procedure Note Niall Kim MD - 07/11/2025 EXAMINATION: 1. MRI right knee without contrast HISTORY: Right knee pain since twisting injury. FINDINGS: Comparison not available. Multiplanar multisequence MR examination of the right knee was performed. In the medial compartment, there is a complex tear of the posterior horn root junction with incomplete radial component and extrusion of the body into the medial gutter. Partial thickness cartilage loss is present. Focal marrow edema involving the peripheral anterior medial tibial plateau with small subchondral insufficiency fracture. In the lateral compartment, there is degenerative innermargin fraying of the meniscal body. Deep partial thickness cartilage loss of the central weightbearing femoral condyle. In the patellofemoral compartment, there is partial thickness cartilage loss the median ridge and medial patellar facet. Fissuring is present. The cruciate and collateral ligaments are intact. Deep medial collateral ligament bursitis. Enthesophyte formation at the distal quadriceps and patellar tendon insertions are noted. The popliteus tendon is normal. Moderate size knee effusion is present with mild synovitis. No loose bodies are identified. Anterior knee subcutaneous edema. IMPRESSION: 1. Complex tear of the right medial meniscus posterior horn root junction with incomplete radial component and extrusion of the body into the medial gutter. 2. Degenerative innermargin fraying of the right lateral meniscal body. 3. Small subchondral insufficiency fracture of the peripheral anterior medial tibial plateau. Mild tricompartmental right knee chondrosis. 4. Moderate size knee effusion. Electronically signed by: Niall Kim M.D. Gentry Leslie MD IMG MRI PROCEDURES Final Res ult * CT Sinus WO Contrast (05/31/2025 10:33 AM CDT) Anatomical Region Laterality Modality Head and Neck N/A Computed Tomogra phy 05/31/2025 1:22 PM CDT Narrative 05/31/2025 3:13 PM CDT EXAM DESCRIPTION: CT SINUS WO CONTRAST REASON FOR STUDY: j32.9 chronic sinusitis Chronic sinusitis,sinus dryness TECHNIQUE: Noncontrast scanning through the paranasal sinuses using bone algorithm. Reconstructed MPR images reviewed. All images stored on PACS. Automated exposure control was used as a dose optimization technique for this examination. COMPARISON: No comparison FINDINGS: SINUSES: The mild mucosal thickening in the frontoethmoidal regions. The sphenoid sinuses appear aerated without mucoperiosteal thickening. The maxillary sinuses are aerated. Ostiomeatal complexes are patent. Sphenoid ostia are patent. Frontoethmoidal regions are patent. NASAL CAVITY: Left nasal septal deviation with left oriented bone spur contacting the medial wall of the left maxillary sinus. BONES: No fracture or bone lesion. ORBITS: Unremarkable with no mass or inflammatory changes. TMJS: Normal. MASTOIDS: Well-aerated. IACs symmetric, grossly normal. BRAIN: There does appear to be mild diffuse prominence of CSF spaces over the convexities although images are severely limited by technique. OTHER: No other significant finding. IMPRESSION: Mild mucosal thickening in the frontoethmoidal regions. Otherwise, no significant sinus disease. Left nasal septal deviation with left oriented bone spur contacting the medial wall of the left maxillary sinus. THIS IS AN ELECTRONICALLY VERIFIED FINAL REPORT 05/31/2025 3:13 PM - Electronically signed by Kalpesh VERGARA T: Report ID: [id number] Reading Location: [id number] Procedure Note Rosana Payan MD - 05/31/2025 EXAM DESCRIPTION: CT SINUS WO CONTRAST REASON FOR STUDY: j32.9 chronic sinusitis Chronic sinusitis,sinus dryness TECHNIQUE: Noncontrast scanning through the paranasal sinuses using bone algorithm. Reconstructed MPR images reviewed. All images stored on PACS. Automated exposure control was used as a dose optimization technique forthis examination. COMPARISON: No comparison FINDINGS: SINUSES: The mild mucosal thickening in the frontoethmoidal regions. The sphenoid sinuses appear aerated without mucoperiosteal thickening. The maxillary sinuses are aerated. Ostiomeatal complexes are patent. Sphenoid ostia are patent. Frontoethmoidal regions are patent. NASAL CAVITY: Left nasal septal deviation with left oriented bone spur contacting the medial wall of the left maxillary sinus. BONES: No fracture or bone lesion. ORBITS: Unremarkable with no mass or inflammatory changes. TMJS: Normal. MASTOIDS: Well-aerated. IACs symmetric, grossly normal. BRAIN: There does appear to be mild diffuse prominence of CSF spacesover the convexities although images are severely limited by technique. OTHER: No other significant finding. IMPRESSION: Mild mucosal thickening in the frontoethmoidal regions.Otherwise, no significant sinus disease. Left nasal septal deviation with leftoriented bone spur contacting the medial wall of the left maxillary sinus. THIS IS AN ELECTRONICALLY VERIFIED FINAL REPORT 05/31/2025 3:13 PM - Electronically signed by Kalpesh Payan M.D. LC T: Report ID: [id number] Reading Location: [id number] us Kvng Marquez MD IMG CT PROCEDURES Final Resu lt * Hepatitis panel, acute Blood (03/12/2025 8:30 AM CDT) Hep A IgM NON-REACTI VE NON-REACT [facility] Comment: For additional information, please refer to http://[employer]/faq/JLY729 (This link is being provided for informational/ educational purposes only.) HepBsAg NON-REACTI VE NON-REACT JANNIE [facility] Comment: For additional information, please refer to http://[employer]/faq/DWX988 (This link is being provided for informational/ educational purposes only.) Hep B core IgM NON-REACTI VE NON-REACT J[facility] Comment: For additional information, please refer to http://[employer]/faq/IXI015 (This link is being provided for informational/ educational purposes only.) Hep C Ab NON-REACTI VE NON-REACT [facility] Comment: HCV antibody was non-reactive. There is no laboratory evidence of HCV infection. In most cases, no further action is required. However, if recent HCV exposure is suspected, a test for HCV RNA (test code 57300) is suggested. For additional information please refer to http://[employer]/faq/ZRP41c2 (This link is being provided for informational/ educational purposes only.) Blood 03/12/2025 8:30 AM CDT 03/12/2025 9:48 PM CDT us Charmaine Carrero MD LAB MICROBIOLOGY - NERAL ORDERABLES Final Result [facility] [address] [place] [address] from Last 3 Months or Most Recently Relevant to Health Maintenance Insurance [employer] COMPENSATION GENERIC Care Teams Engine Room Operator Relationship Specialty Start Date End Date Kvng Marquez MD PCP - General 01/14/17
[2025-08-22 11:41] LABS: Anion Gap 6 mmol/L (4-12); Blood Urea Nitrogen 24 mg/dL (9-20); Calcium 10.0 mg/dL (8.4-10.2); Carbon Dioxide 32 mmol/L (22-30); Chloride 101 mmol/L (98-107); Estimated Glomerular Filt Rate > 60; Glucose 94 mg/dL (65-110); Potassium 5.4 mmol/L (3.4-5.0); Sodium 139 mmol/L (137-145)
== END 2025-08-22 10:29 | disposition home or self-care (01) ==
LOC: ANHSURGERY 10:29
PROVIDERS: Anesthesiology; PCP Emergency Medicine; Visit Provider Orthopaedic Surgery
DX: Z01.818 Encounter for other preprocedural examination (principal); I10 Essential (primary) hypertension
CPT/HCPCS: 36415; 80048; 93005

== ENCOUNTER 2025-08-23 02:28 | Day surgery (SDC) | payer OTHER, SELFPAY ==
[2025-08-21 09:23] VITALS: BMI 30.4
--- NOTE | 2025-08-21 09:29 | PC.NURSE ---
[facility] has started construction of its new state of the art ER which will open Spring 2026. With this, we anticipate parking may be a challenge for some our surgical patients and families. Parking spaces are limited but are available for all Surgical, obstetrics, and ER patients sharing this lot. If you arrive and find you are having a hard time finding a parking space, please note that we understand the challenges, please drive around the hospital and park near Hospital Entrance 1. When you enter this entrance, you can ask a volunteer to direct or take you back to the surgical waiting area to check in. We appreciate everyone?s understanding of these expected challenges while we build for your future. Report to the Outpatient Waiting Room, entrance under the green pavilion located off [address], at time _0800__ on date 08/23/25_. Planned Procedure Time: _1000___.? Time changes happen often and if your time is changed the preop area will call you the afternoon before. - You and your visitor will be asked to self-screen and do not enter if you have any COVID symptoms. Please call surgeon if you need to reschedule. - A mask is optional within the hospital at this time. Patients may have clear liquids (water, carbonated beverages, clear teas, apple juice) until 3 hours prior to surgery with a maximum of 20 ounces. - No food from midnight until time of surgery and no smoking, or chewing tobacco (or any form of nicotine). No chewing gum, candy or mints. Take only the following medications with a SIP of water on the morning of surgery: ___NONE DO NOT STOP ANY OF YOUR OTHER PRESCRIPTION MEDICATIONS PRIOR TO SURGERY EXCEPT THE FOLLOWING Hold all vitamins and supplements for 3 days per anesthesiologist. Medications to discontinue per physician Date to take last dose Please no make-up, nail turkmen, hairspray, perfume, deodorant, or body powder the day of surgery.? No jewelry (including any body piercings) or valuables the day of surgery, leave them at home.? Please take a shower or bath the night before, or the morning of, surgery with an antibacterial soap.? Wear comfortable, loose fitting clothing.? Children are encouraged to wear pajamas. - Jewelry must be removed prior to entering the operating room.? Rings and piercings that are not removed may be cut off. - The hospital will not accept responsibility for valuables.? - Please leave all valuables, including medications, at home the day of surgery. If you are going home after surgery, a licensed bus van driver must drive you home.? - NO public transportation without another adult if you receive anesthesia. - We recommend that an adult stay with you for 24 hours following discharge. - We also recommend that you do not drive, make important decision, drink alcoholic beverages, or take any drugs that were not prescribed by your health care provider for at least 24 hours after your discharge time. For Pediatric surgeries, we recommend two adults accompany the child home. Follow any additional instructions given to you from your surgeon. Telephone instructions given tO PATIENT_and asked if any additional questions and then verbalized understanding. Patient advised to call surgeon office or pre surgery nurse liaison [phone] if any additional questions.
[2025-08-23] VITALS (8 sets, daily range): BP systolic 102–164; BP diastolic 71–94; PULSE 52–65; RESP 12–16; TEMP 36.3–36.4; O2SAT 99–100
--- OUTSIDE RECORDS SUMMARY | 2025-08-23 02:31 | XMS_ITS | Clinical Summary ---
Author Organization [facility] Address [address] [place] [address] Care Team Providers Care Primary Teacher Name Role Phone Kvng Marquez MD Primary [...] Active Problems Problem Noted Date Diagnosed Date FPC (current) use of n on-steroidal anti-inflammatories (nsaid) 07/11/2023 Assessment & Plan (07/11/2023 11:41 AM MANAGER INTENSIVE CARE): Takes naproxen once a day most days [...] or kidney issues. Take care when using wiyy-rer-hjepsep medications as some also contain NSAIDs. The most common ctly-csg-blnmwiq NSAIDs include naproxen and ibuprofen. Make sure that you do not take more than one NSAID-type medications at the same time unless specifically directed to by a medical professional. Osteoarthritis of multiple joints 07/11/2023 Assessment & Plan (07/11/2023 11:47 AM MANAGER INTENSIVE CARE): You can use topical diclofenac gel massaged [...] 11/19/2019 Assessment & Plan (07/11/2023 11:04 AM MANAGER INTENSIVE CARE): Long-term use of high-risk medication requiring regular monitoring. Labs ordered, no s/s of med tox or infection. Encouraged to work with PCP to make sure all recommended cancer screens and vaccinations are complete. Avoid live-vaccines unless reviewed with motor vehicle operator road supervisor first. Assessment & Plan (11/19/2019 10:53 PM CDT): Patient on immunosuppressive medications requiring periodic lab monitoring for drug safety. Rheumatoid arthritis involvi ng multiple sites with positive rheumatoid factor 01/05/2016 Overview (12/09/2016): RA (rheumatoid arthritis) Assessment & Plan (07/11/2023 11:41 AM MANAGER INTENSIVE CARE): Stable on Enbrel, continue same. Labs due [...] Department Care Team Description 07/11/2025 1:49 PM MANAGER INTENSIVE CARE - 07/11/2025 11:59 PM MANAGER INTENSIVE CARE Hospital Encounter [address] [address] Unspecified injury of right lower leg, initial encounter Discharge Disposition: Discharge to home or self care 06/03/[address] [facility] Rheumatology at [facility] [address] [facility] [address] [place] [phone] Charmiane Carrero MD Infusion; Medication Problem 05/31/2025 10:08 AM CDT - 05/31/2025 11:59 PM CDT Hospital Encounter [address] [address] Chronic sinusitis, unspecified location Discharge Disposition: Discharge to home or self care 05/30/[address] [phone] Charmaine Carrero MD from Last 3 Months [...] on file Legal Sex Male 11:14 AM MANAGER INTENSIVE CARE Gender Identity Not on file Sexual Orientation [...] Read Routine (OP Routine) 07/11/2025 2:51 PM MANAGER INTENSIVE CARE Unspecified injury of right lower leg, initial encounter CT SINUS WO CONTRAST Schedule Routine, Read Routine (OP Routine) 05/31/2025 10:33 AM CDT Chronic sinusitis, unspecified location HEPATITIS PANEL, ACUTE Routine 03/12/2025 8:30 AM CDT Long-term use of high-risk medication from Last 3 Months or Most Recently Relevant to Health Maintenance Results * MRI Knee Right WO Contrast (07/11/2025 2:51 PM MANAGER INTENSIVE CARE) Anatomical Region Laterality Modality Lower Extremities Right Magnetic Reson ance 07/11/2025 7:58 PM MANAGER INTENSIVE CARE Impressions 07/11/2025 7:58 PM MANAGER INTENSIVE CARE 1. Complex tear of the right medial [...] Niall Kim M.D. Narrative 07/11/2025 7:58 PM MANAGER INTENSIVE CARE EXAMINATION: 1. MRI right knee without contrast [...] signed by Kalpesh VERGARA T: Report ID: [id number] Reading Location: [id number] Procedure Note Rosana Payan MD - 05/31/2025 [...] Kalpesh Payan M.D. LC T: Report ID: [id number] Reading Location: [id number] us Kvng Marquez MD IMG CT PROCEDURES Final Resu lt * Hepatitis panel, acute Blood (03/12/2025 8:30 AM CDT) Hep A IgM NON-REACTI VE NON-REACT [facility] Comment: For additional information, please refer to http://ImageB[employer]/faq/NDI276 (This link is being provided for informational/ educational purposes only.) HepBsAg NON-REACTI VE NON-REACT [facility] Comment: For additional information, please refer to http://ImageBrief/faq/IHJ038 (This link is being provided for informational/ educational purposes only.) Hep B core IgM NON-REACTI VE NON-REACT [facility] Comment: For additional information, please refer to http://ImageBrief/faq/TIN383 (This link is being provided for informational/ educational purposes only.) Hep C Ab NON-REACTI VE NON-REACT [facility] Comment: HCV antibody was non-reactive. There is no laboratory evidence of HCV infection. In most cases, no further action is required. However, if recent HCV exposure is suspected, a test for HCV RNA (test code 84395) is suggested. For additional information please refer to http://ImageBrief/faq/ZFT75i6 (This link is being provided for informational/ educational purposes only.) Blood 03/12/2025 8:30 AM CDT 03/12/2025 9:48 PM CDT us Charmaine Carrero MD LAB MICROBIOLOGY - NERAL ORDERABLES Final Result [facility] [address] [place] [address] from Last 3 Months or Most Recently Relevant to Health Maintenance Insurance [facility] Address: [place] [address] [facility] [employer] [address] [facility] [employer] Address: [address] [address] [place] [address] WORKERS COMPENSATION GENERIC Care Teams Primary Teacher Relationship Specialty Start Date End Date Kvng Marquez MD PCP - General 01/14/17
--- OUTSIDE RECORDS SUMMARY | 2025-08-23 02:31 | XMS_ITS | Encounter Summary ---
Author Organization [facility] Address [address] [place] [address] Phone Care Team Providers Care Database Security Expert Name Role Phone Kvng Marquez MD Primary Care Provider [phone] Encounter Details Date Type Department Care Team (Late st Contact Info) Description 10/11/2017 Orders Only [facility] ProviderJordan MD [address] [place] [id number] Social History Tobacco Use Types Packs/Day Years Used Date Smoking Tobacco: Former Smokeless Tobacco: Current Alcohol Use Standard Drinks/Week Comments No 0 (1 standard drink = 0.6 oz pur e alcohol) Sex and Gender Information Value Date Recorded Sex Assigned at Not on file Legal Sex Male 11:14 AM SCLEROSCOPE TESTER Gender Identity Not on file Sexual Orientation Not on file documented as of this encounter Plan of Treatment Not on file documented as of this encounter Procedures Procedure Name Priority Date/Time Associated Diagnosis Comments DISCHARGE LABORATORY CUMULATIVE REPORT 10/11/2017 12:00 AM SCLEROSCOPE TESTER documented in this encounter Results * DISCHARGE LABORATORY CUMULATIVE REPORT (10/11/2017 12:00 AM SCLEROSCOPE TESTER) Narrative 10/11/2017 12:00 AM SCLEROSCOPE TESTER Ordered by an unspecified provider. Historical Provider LAB BLOOD ORDERABLES Isela l Result documented in this encounter Visit Diagnoses Not on filedocumented in this encounter Care Teams Database Security Expert Relationship Specialty Start Date End Date Kvng Marquez MD PCP - General 01/14/17 documented as of this encounter
--- OUTSIDE RECORDS SUMMARY | 2025-08-23 02:31 | XMS_ITS | Clinical Summary ---
Author Organization [facility] Address [address] [place] [address] Phone Care Team Providers Care Litigation Assistant Name Role Phone Kvng Marquez Primary Care Provider [phone] Avelino Felix APRN, SIX SIGMA BLACK TRAINER Unavailable [phone] Mike Hsu MD Unavailable Allergies Active Allergy [...] Follow-Up [facility] [address] [place] [phone] Avelino Felix APRN, SUDEEP PSA DIAGNOSTIC,TOTAL 06/06/2025 10:45 AM CDT Office Visit [facility] [address] [phone] Jackie Washington APRN, CNP Thrombocytopenia (Primary Dx); Leukocytosis, unspecified type; History of elevated PSA 06/06/2025 Travel 05/30/2025 1:30 PM CDT Office Visit [facility] [address] [address] Mike Hsu MD Thrombocytopenia (HCC) (Primary Dx) 05/30/2025 1:25 PM CDT Lab [facility] [address] [address] Lab, [facility]c [facility] Thrombocytopenia (HCC); Rising PSA level 05/30/2025 Travel [...] on file Legal Sex Male 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 Gender Identity Not on file Sexual Orientation [...] st Contact Info) Description 10/10/2025 10:30 AM RECRUITMENT SPECIALIST Lab [facility] [address] [phone] Lab, Cc [place] 10/10/2025 10:45 AM RECRUITMENT SPECIALIST Office Visit [facility] [address] [address] Mike Hsu MD [address] [place] [address] 12/10/2025 11:00 AM CDT Office Visit [facility] [address] [place] [address] Avelino Felix, FUR EXAMINER, SIX SIGMA BLACK TRAINER [address] [place] [address] Health Maintenance Due Date Last Done Comments [...] PSA 4.00 0.00 - 4.00 ng/mL CANCER STUDY DIRECTOR [facility] Comment: Marsha Paramagnetic Particle Chemiluminescent Immunoassay Method. Standardized against the WHO standard. Blood 05/30/2025 1:22 PM CDT Narrative [facility] 05/31/2025 3:42 PM CDT Release to patient->Immediate us Avelino Felix FUR EXAMINER, SIX SIGMA BLACK TRAINER CHEMISTRY ORDERABLES F inal Result CANCER STUDY [facility]OR [facility] [place] [address], * (ABNORMAL) COMPLETE BLOOD COUNT (CBC) WITH DIFF (05/30/2025 1:22 PM CDT) WBC 14.4(H) 4.0 - 10.0 10*3/uL CANCER STUDY [facility]OR [facility] HGB 15.6 13.7 - 17.5 g/dL CANCER STUDY DIRECTOR [facility] HCT 46.6 40.1 - 51.0 % CANCER STUDY DIRECTOR [facility] PLT 186 163 - 369 10*3/uL CANCER STUDY DIRECTOR [facility] MPV 10.5 9.4 - 12.4 fL CANCER STUDY DIRECTOR [facility] RBC 5.64 4.63 - 6.08 10*6/uL CANCER STUDY DIRECTOR [facility] MCV 83 79 - 95 fL CANCER STUDY DIRECTOR [facility] MCH 27.7 25.6 - 32.2 pg CANCER STUDY DIRECTOR [facility] MCHC 33.5 32.2 - 36.5 g/dL CANCER STUDY DIRECTOR [facility] RDW 13.8 11.6 - 14.4 % CANCER STUDY [facility]OR [facility] Absolute Neutrophil Count 10,045 cells/uL CANCER STUDY [facility] Absolute Seg Count 10,045(H) 1,440 - 6,600 cells/uL CANCER STUDY [facility] Absolute Lymph Count 2,870 760 - 4,000 cells/uL CANCER STUDY [facility]OR [facility] Absolute Ford Count 1,005 160 - 1,200 cells/uL CANCER STUDY [facility] Absolute Eos Count 431(H) 0 - 300 cells/uL CANCER STUDY [facility] Segmented Neutrophils 70(H) 36 - 66 % CANCER STUDY DIRECTOR [facility] Lymphocytes 20 19 - 40 % [facility] C [facility] Monocytes 7 4 - 12 % [facility] Eosinophils 3 0 - 3 % [facility] WBC Estimate High CANCER STUDY DIRECTOR [facility] Platelet Estimate Normal CANCER STUDY [facility]OR [facility] RBC Morphology Normal CANCE R STUDY DIRECTOR [facility] Large Platelets Present CANC ER STUDY DIRECTOR [facility] Blood 05/30/2025 1:22 PM CDT Narrative CANCER STUDY DIRECTOR [facility] - 05/30/2025 2:24 PM CDT Release to patient->Immediate us Mike Hsu MD HEMATOLOGY ORDERABLES Final Resu lt [facility]CER STUDY [facility] [place] [address], [place] [phone] from Last 3 Months Insurance Advance Directives Documents on File Type Date Recorded 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
--- NOTE | 2025-08-23 07:19 | WPDHPUPDATE1 ---
History and Physical Update Update Date/Time: 08/23/25 07:19 History and Physical has been reviewed, including an updated exam of the patient. There are NO changes in the patient's condition. Risks, benefits, and alternatives have been discussed and questions answered. Patient agrees to proceed with procedure.
--- NOTE | 2025-08-23 08:37 | P.PNAN_ITS ---
Anes - Initial Pre Proc Eval Procedure: Operation Date: 08/23/25 10:00 Proposed Procedures p Right Knee Arthroscopy, Proceed As Indicated - Gentry Leslie MD Date/Time: 08/23/25 08:37 Surgeon: Gentry Leslie MD Pre Op Diagnosis: right knee medial meniscus tear Patient Data Age: 65 Gender: M Height: 1.77 m Weight: 95 kg Allergies Allergy/AdvReac Type Severity Reaction Status Date / Time Penicillins Allergy Unknown Swelling Verified 08/23/25 09:32 of Lip/Tongue/Throat Home Medications ?Medication ?Instructions ?Recorded ?Confirmed ?Type lisinopril 10 1 tablet PO DAILY 12/15/21 1 10/24/24 History mg-hydrochlorothiazide 12.5 mg tablet naproxen 500 mg tablet 500 mg PO DAILY 12/15/21 History sildenafil 50 mg tablet 50 mg PO DAILY PRN Sexual Ac tivity 12/15/21 08/21/25 History omeprazole 20 mg capsule,delayed 20 mg PO DAILY #30 ca ps 12/28/21 08/21/25 Rx release cetirizine 10 mg tablet (Zyrtec) 10 mg PO DAILY PRN al lergy symptoms 08/21/25 08/21/25 History Patient hx anesthesia problems: none Family hx anesthesia problems: none Results Review: All pre-operative results and documents have been reviewed as part of the pre- operative evaluation. [facility] Past Medical History Medical History GERD (gastroesophageal reflux disease) Colon cancer screening Tobacco chew use Overweight HTN (hypertension) Surgical History Surgical History History of cholecystectomy Social History Social History Smoking packs per day: 1 Smoking cigarettes per day: 20.0 Years smoked: 30 Smoking pack-years: 30.00 Smoking status: Former smoker Tobacco type: cigarettes Additional smoking assessment comments: QUIT 2009 Alcohol intake: former Alcohol use details: QUIT 25 YRS AGO Substance use: never Substance use type: does not use Living arrangements: with family Spiritual care concerns: No Anes - Eval Final PreProcedure Day of Procedure 08/23/25 08:37 Patient weight: obese Heart: regular rate and rhythm Lungs: clear to auscultation Airway: Mallampati scale class II Neurological: alert and oriented Last oral intake: >/= 8 hours ASA classification: III Emergent: no Anesthetic plan: proceed Anesthesia type and monitoring: general LMA and standard monitoring Results Review: All pre-operative results and documents have been reviewed as part of the pre- operative evaluation. Informed Consent: The patient's anesthetic plan and its attendant risks and benefits were discussed with the patient/family/POA. Questions were solicited and answers provided to the satisfaction of the patient/family/POA.
[2025-08-23] MEDS: CELECOXIB 200 MG CAPSULE PO (08:50)
[2025-08-23] MEDS: ACETAMINOPHEN 500 MG TABLET 1000 MG PO (08:50)
[2025-08-23] MEDS: LACTATED RINGERS 1,000 ML 30 ML IV CONT (08:50)
[2025-08-23] MEDS: ceFAZolin 2 GM in SODIUM CHLORIDE 0.9% IV 50 ML 100 ML IVPB (10:13)
[2025-08-23] MEDS: BUPivacaine HCL 0.5% 10 ML AMP 30 ML INFILTRATE (10:53)
[2025-08-23] MEDS: methylPREDNISolone ACETATE 80 MG/ML VIAL IM (10:54)
--- NOTE | 2025-08-23 11:12 | W.PM.PROC2 ---
Procedure Note - Detailed Date of Procedure 08/23/25 Pre-op Diagnosis right knee medial meniscus tear Post-op Diagnosis Same Procedure Performed RIGHT KNEE SCOPE Surgeon Gentry Leslie MD Anesthesia General Description of Procedure PATIENT WAS TAKEN TO THE OR. RIGHT LEG WAS PREPPED AND DRAPED STERILE. TROCARS WERE PLACED IN THE USUAL FASHION. CAMERA WAS INTRODUCED. THERE WAS CHONDROMALACIA TO THE PATELLA FEMORAL JOINT. THERE WAS A LOT OF SYNOVITIS IN ALL COMPARTMENTS. THE MEDIAL COMPARTMENT SHOWED CHONDROMALACIA TO THE MEDIAL FEMORAL CONDYLE. A SHAVER WAS USED TO PREFORM A CHONDROPLASTY. THERE WAS A COMPLEX MEDIAL MENISCUS TEAR. THE TEAR WAS RESECTED WITH A BITER AND A SHAVER DOWN TO A SMOOTH BASE. THE ACL WAS INTACT. THE LATERAL MENISCUS WAS NOT TORN. THERE WAS A LARGE AREA OF GRADE 3 CHONDROMALACIA AND UNSTABLE CARTILAGE OVER THE MAIN WEIGHT BEARING SURFACE OF THE LATERAL FEMORAL CONDYLE. CHONDROPLASTY WAS PREFORMED. A SYNOVECTOMY WAS PREFORMED WELL. THE PATELLO FEMORAL JOINT UNDERWENT CHONDROPLASTY. THERE WAS GRADE 3 CHONDROMALACIA IN MOST OF THE TROCHLEA AND PART OF THE PATELLA. SYNOVECTOMY WAS PREFORMED IN THE SUPERIOR MEDIAL COMPARTMENT. THE WOUNDS WERE APPROXIMATED WITH 4.0 NYLON. STERILE DRESSING WAS APPLIED. PATIENT WAS EXTUBATED. Estimated Blood Loss 5 Complications No immediate complications Condition Stable Disposition PACU
[2025-08-23] MEDS: oxyCODONE HCL (*CRX) 5 MG TAB IR PO (12:50)
== END 2025-08-23 13:18 | disposition home or self-care (01) ==
PROVIDERS: PCP Emergency Medicine; Visit Provider Orthopaedic Surgery
PROC: (CPT 29870; principal; 2025-08-23 10:00)
DX: S83.231A Complex tear of medial meniscus, current injury, right knee, initial encounter (principal); M94.261 Chondromalacia, right knee; M65.861 Other synovitis and tenosynovitis, right lower leg; Y93.39 Activity, other involving climbing, rappelling and jumping off; I10 Essential (primary) hypertension; K21.9 Gastro-esophageal reflux disease without esophagitis; E66.9 Obesity, unspecified; Z68.31 Body mass index [BMI] 31.0-31.9, adult; Z79.1 Long term (current) use of non-steroidal anti-inflammatories (NSAID); Z90.49 Acquired absence of other specified parts of digestive tract; Z87.891 Personal history of nicotine dependence
CPT/HCPCS: 29881; J0690; A9270; J1010; J2003; J2250; J2405; J2704; J3010; J7120